=== PATIENT | female | born 1965 | race Caucasian/White ===

== ENCOUNTER 2017-01-26 03:23 | Emergency (ER) | payer OTHER ==
[~2017-01-26] VITALS: Ht 152.4 cm; Wt 78.6 kg
[2017-01-26 03:25] VITALS: BP 107/70; PULSE 88; RESP 20; O2SAT 96
--- NOTE | 2017-01-26 03:48 | ED.REPORT ---
HPI-General Illness Date of Service Jan 26, 2017 ED Provider: Issac Brown MD 51 year old female with a history of asthma presents to the ER complaining of three weeks of cough and wheeze. Associated symptom of mild sore throat. She was seen at the walk in clinic two days ago for similar. At that time she was found to be afebrile and was treated with steroids and albuterol inhaler. This morning she awakened to find that her fever had developed, and came into the emergency department. She has a nebulizer at home but no puffer and spacer. She is on a prednisone taper and currently tapering. Nursing Notes Stated Complaint: FEVER,COUGH Chief Complaint: FLU/Cold Symptoms Nursing Notes Reviewed: Yes Allergies: Coded Allergies: hydromorphone HCl (Verified Adverse Reaction, Severe, PANIC, 07/15/12) metoclopramide HCl (Verified Adverse Reaction, Severe, HYPERTENSION, ) Uncoded Allergies: TRAZADONE (Allergy, Mild, RASH, 07/15/12) METRADIAZOLE (Adverse Reaction, Mild, RASH, 07/15/12) Scheduled Azithromycin (Zithromax) 250 Mg Tablet 250 MG PO DAILY Prednisone (PredniSONE) 20 Mg Tablet 60 MG PO DAILY Scheduled PRN Albuterol Neb Soln (Albuterol Neb Soln) 2.5 Mg/3 Ml Vial.neb 2.5 MG INHALATION Q4H PRN PRN For Wheezing Benzonatate (Tessalon Perle) 100 Mg Capsule 100 MG PO TID PRN PRN For Cough General Time Seen by MD: 03:47 Chief Complaint Fever Hx Obtained From: Patient Arrived By: Walk-in Sudden in Onset?: No Onset Occurred: More than a week ago... (3 weeks) Symptom Duration: Since onset Associated with: Reports: Congestion, Cough, Denies: Chest pain, Vomiting Pertinent Negative: Pt denies other symptoms Context Related History: Reports Asthma Recent Healthcare: Recent doctor visit Similar Sx Previous: Yes Past Medical History Past Medical History Reports: Asthma Smoking History Unknown if Ever Smoker Ambulatory Status Independent Review of Systems Full Review of Systems Constitutional: Reports: Fever Ears / Nose / Throat: Reports: Sore throat Respiratory: Reports: Non-productive cough GI: Denies: Abdominal pain, Diarrhea, Nausea, Vomiting Complete sys rev & neg: except as marked. Physical Exam Vital Signs Vital Signs Date Time Temp Pulse Resp B/P Pulse Ox O2 Delivery O2 Flow Rate FiO2 01/26/17 06:08 105 20 121/59 95 Room Air 01/26/17 04:13 81 18 96 Room Air 01/26/17 03:25 37.7 88 20 107/70 96 Room Air Initial VS: Reviewed General/Constitutional: Well-developed, Well-nourished Head / Eyes: Atraumatic, Normocephalic, PERRL Neck: Supple, Non-tender, Full range of motion Extremities: Vascular intact, Neuro intact, No swelling, No tenderness Skin: Warm, Dry, No cyanosis Neurologic: Alert, Oriented, Nonfocal ENT: Airway patent, Mucous membranes moist, Pharynx NL, Tympanic membs NL, Ext aud canal NL Respiratory / Chest: No rales, No rhonchi, No chest tenderness, No chest wall deformity Wheezing / Retractions: Positive: Wheezing expiratory (end) Bronchospastic sounding cough. Cardiovascular: Heart rate NL, Regular rhythm, Heart sounds NL, Cap refill not delayed, Peripheral circulation NL Interpretation & Diagnostics X-Ray Chest Interpretation Chest Xray Interpretation: Normal. View: AP & lat Interpretation / Wet Read by: Wet read ED physician Re-Eval/Medical Decision Med Decision/Clinical Course 51-year-old history of asthma presents with three week course, eating and a definite fever this evening. X-rays negative for infiltrate. We will begin azithromycin empirically, and addition to restarting her prednisone at full dose. Albuterol puffer and spacer with training provided. Follow up with PCP. Prompt return if worse. Time of Eval: 05:32 Re-Evaluation/Progress Note: Patient's continues to have a tight cough, but is improved. Discussed lab and radiology results and plan to discharge. Patient is amenable to the plan. Return precautions given. All other questions addressed. Counseled Regarding: Diagnosis, Need for follow-up, When/why to return to ED Discharge & Departure Primary Impression: Bronchitis Additional Impression: Asthma Asthma severity: moderate persistent Asthma complication type: with acute exacerbation Qualified Code: J45.41 - Moderate persistent asthma with (acute) exacerbation Disposition: Home Discharge Condition All VS Reviewed: Yes Condition: Stable Patient Instructions: Acute Bronchitis (DC), Asthma (DC) Additional Instructions: Continue prednisone. Add azithromycin daily for four more days Drink plenty fluids and stay well-hydrated Run a vaporizer in her room to keep the air moist Return if worsening despite treatment May use Tessalon Perles for persistent coughing Use albuterol two puffs every 3-4 hours, always with spacer. Referrals: Steven Em MD (PCP) Scribe Attestation Portions of this note were transcribed by Jerry Cruz. I, Dr. Brown, personally performed the history, physical exam and medical decision-making; I reviewed and confirmed the accuracy of the information in the transcribed note. Signed by: Conor Brambila. 01/26/2017 - 05:43 copies to: Steven Em MD, Christopher W MD Jan 26, 2017 03:48 JERRY CRZU Jan 26, 2017 03:58
[2017-01-26] MEDS ORDERED: Albuterol-Ipratropium 3 mL Inhalation Solution NEB ONE (03:55)
[2017-01-26] MEDS ORDERED: Albuterol 2.5 mg/3 mL Inhalation Solution NEB ONE ×2 (03:55→05:45)
[2017-01-26 04:13] VITALS: PULSE 81; RESP 18; O2SAT 96
[2017-01-26] MEDS ORDERED: _Albuterol-HFA 60 Puff Inhaler INHALATION PRN (05:05)
[2017-01-26] MEDS ORDERED: ZIT250 PO (05:27)
[2017-01-26] MEDS ORDERED: BENZ-12 PO (05:27)
[2017-01-26] MEDS ORDERED: Dexamethasone 20 mg/2 mL Oral Solution PO ONE (05:30)
[2017-01-26] MEDS ORDERED: PRE20 PO (05:30)
[2017-01-26] MEDS ORDERED: ALBU2.5V4 INHALATION (05:43)
[2017-01-26 06:08] VITALS: BP 121/59; PULSE 105; RESP 20; O2SAT 95
--- NOTE | 2017-01-26 09:10 | DRSVH ---
PROCEDURE: X-RAY CHEST, TWO VIEWS ([id number]) INDICATIONS: cough, fever TECHNIQUE: 2 views of the chest were acquired. COMPARISON: [facility], CR, CHEST 2VW, 07/15/2012, 20:24. FINDINGS: Surgical changes and devices: None. Lungs and pleura: No pleural effusions or pneumothorax. Lungs are clear. Mediastinum: Mediastinal contours are normal. Heart size is normal. Bones and chest wall: No suspicious bony abnormalities. Soft tissues appear unremarkable. IMPRESSION: No acute cardiopulmonary disease. Dictated by: Jez Summers [facility] Interpreted: Evelina Christianson MD on 01/26/2017 at 9:10 Transcribed by: ROMEL on 01/26/2017 at 9:10 Approved by: Evelina Christianson MD, PhD on 01/26/2017 at 16:41
== END 2017-01-26 06:09 | disposition home or self-care (01) ==
LOC: SED 03:23
DX: J45.41 Moderate persistent asthma with (acute) exacerbation (principal); Z88.5 Allergy status to narcotic agent; Z88.8 Allergy status to other drugs, medicaments and biological substances
CPT/HCPCS: 71020; 94640; 94664; 99284; J7613; J7620

== ENCOUNTER 2017-02-24 14:02 | Emergency (ER) | payer OTHER ==
[~2017-02-24] VITALS: Ht 152.4 cm; Wt 79.5 kg
[~2017-02-24 14:02] MED LIST: ALBU2.5V4 INHALATION; BENZ-12 PO; PRE20 PO; ZIT250 PO
[2017-02-24 14:19] VITALS: BP 140/84; PULSE 86; RESP 16; O2SAT 97
--- NOTE | 2017-02-24 15:43 | ED.REPORT ---
HPI-Dental/Mouth Prob Date of Service Feb 24, 2017 ED Provider: Miguel A Lema PA-C Nikki is an otherwise healthy 51-year-old female presenting with a chief complaint of dental pain. She reports she broke a right lower molar approximately one week ago and has had severe pain since then. She feels as though there is a lump near the tooth. Denies fever, chills, malaise, vomiting. She reports getting reasonable pain control with 400 mg ibuprofen, however this does not last long enough. She is attempting to make arrangements to see a dentist through Dec, but they cannot schedule her for about 1 month. Plans to call other dentists to try to be seen sooner. Nursing Notes Stated Complaint: DENTAL PAIN Chief Complaint: Dental Nursing Notes Reviewed: Yes Allergies: Coded Allergies: metronidazole (Verified Allergy, Mild, RASH, 02/24/17) trazodone (Verified Allergy, Mild, RASH, 02/24/17) hydromorphone HCl (Verified Adverse Reaction, Severe, PANIC, 02/24/17) metoclopramide HCl (Verified Adverse Reaction, Severe, HYPERTENSION, ) Scheduled Azithromycin (Zithromax) 250 Mg Tablet 250 MG PO DAILY Penicillin V Potassium (Penicillin V Potassium) 500 Mg Tablet 500 MG PO QID Prednisone (PredniSONE) 20 Mg Tablet 60 MG PO DAILY Scheduled PRN Albuterol Neb Soln (Albuterol Neb Soln) 2.5 Mg/3 Ml Vial.neb 2.5 MG INHALATION Q4H PRN PRN For Wheezing Benzonatate (Tessalon Perle) 100 Mg Capsule 100 MG PO TID PRN PRN For Cough General Time Seen by MD: 15:28 Chief Complaint Tooth pain Past Medical History Past Medical History Reports: Asthma Smoking History Unknown if Ever Smoker Ambulatory Status Independent Review of Systems Review of Systems Note: Negative unless stated otherwise in history of present illness Physical Exam General: Well appearing, well developed, well nourished, no acute distress. Head: Atraumatic, normocephalic. Eyes: No scleral icterus or injection. No discharge. Vision grossly intact. ENT: Voice clear, hearing grossly intact. Mouth: Poor dentition with many caries. Obviously fractured molar #2. Tenderness along the gumline. No redness, swelling, discharge, fluctuance. Apparently no drainable abscess. Respiratory: No respiratory distress, no increased work of breathing. Speaks in complete sentences. Skin: Warm and dry. Neurological: Grossly nonfocal. Psychological: alert and oriented. Speech appropriate, linear and logical. Behavior appropriate. Initial Vital Signs Vital Signs (First) Date Time Temp Pulse Resp B/P Pulse Ox O2 Delivery O2 Flow Rate FiO2 02/24/17 14:19 36.6 86 16 140/84 97 Room Air Initial VS: Vital signs normal Re-Eval/Medical Decision Med Decision/Clinical Course Otherwise healthy 51-year-old female presents the chief complaint of tooth pain in her right lower jaw. Reports that she fractured her tooth one week ago. No obvious infection or abscess to be drained. Patient reports getting reasonable analgesia with 400 mg ibuprofen. I advised increase ibuprofen to 600 mg and alternating every 3 hours with acetaminophen 1000 mg. Prescribed Pen-Vee K 500 mg 4 times a day 7 days, as I think infection is likely to develop before she can be seen by dentist. Advised dental follow-up, provided emergent return precautions. Patient verbalizes understanding of and agreement to the plan. Discharge & Departure Primary Impression: Toothache Disposition: Home Discharge Condition All VS Reviewed: Yes Condition: Stable Patient Instructions: Acute dental trauma (ED) Additional Instructions: Evaluation for tooth pain in the emergency department. The source of your pain appears to be the fractured tooth in your right lower jaw. There is no indication of an abscess that would benefit from drainage. This will need to be seen by a dentist as soon as possible. The pain is best treated with 600 mg of ibuprofen (Advil, Motrin) every 6 hours , or 1000 mg of acetaminophen (Tylenol) every 6 hours. These drugs can be taken at the same time for more severe pain. I will also write a prescription for penicillin to be taken 4 times a day for 7 days. Follow-up with a dentist as soon as possible. Return to emergency department for any new or worsening symptoms including fever, increasing pain, redness, swelling or any appearance of pus. Referrals: Steven Em MD (PCP) EDSupervising Provider for APC: Adriana Kaiser MD copies to: Steven Em MD, Seth PA-C Feb 24, 2017 15:43
[2017-02-24] MEDS ORDERED: PENI500T PO (15:44)
[2017-02-24 16:28] VITALS: BP 142/86; PULSE 71
== END 2017-02-24 16:30 | disposition home or self-care (01) ==
LOC: SED 14:02
DX: K08.89 Other specified disorders of teeth and supporting structures (principal); J45.909 Unspecified asthma, uncomplicated; Z88.5 Allergy status to narcotic agent; Z88.8 Allergy status to other drugs, medicaments and biological substances
CPT/HCPCS: 96372; 99283; J1885

== ENCOUNTER 2017-05-22 18:21 | Emergency (ER) | payer OTHER ==
[~2017-05-22 18:21] MED LIST changes: +PENI500T PO
[2017-05-22 18:24] VITALS: PULSE 96; RESP 12; O2SAT 98
--- NOTE | 2017-05-22 18:31 | ED.REPORT ---
HPI-Eye Problem Date of Service May 22, 2017 ED Provider: Dr. Ken Valadez The patient is a 51 year old female who presents to the ED due to left eye redness earlier today. Pt noticed after coughing that she had a conjunctival hemorrhage. She denies any other symptoms or eye pain, eye swelling, vision loss , or blurred vision. Nursing Notes Stated Complaint: EYE ISSUE Chief Complaint: Eye Nursing Notes Reviewed: Yes Allergies: Coded Allergies: metronidazole (Verified Allergy, Mild, RASH, 02/24/17) trazodone (Verified Allergy, Mild, RASH, 02/24/17) hydromorphone HCl (Verified Adverse Reaction, Severe, PANIC, 02/24/17) metoclopramide HCl (Verified Adverse Reaction, Severe, HYPERTENSION, ) Scheduled Azithromycin (Zithromax) 250 Mg Tablet 250 MG PO DAILY Penicillin V Potassium (Penicillin V Potassium) 500 Mg Tablet 500 MG PO QID Prednisone (PredniSONE) 20 Mg Tablet 60 MG PO DAILY Scheduled PRN Albuterol Neb Soln (Albuterol Neb Soln) 2.5 Mg/3 Ml Vial.neb 2.5 MG INHALATION Q4H PRN PRN For Wheezing Benzonatate (Tessalon Perle) 100 Mg Capsule 100 MG PO TID PRN PRN For Cough General Time Seen by MD: 18:29 Chief Complaint Left eye affected Hx Obtained From: Patient Arrived By: Walk-in Sudden in Onset?: Yes Onset Occurred: 1 - 4 hours ago Symptom Duration: Since onset Location: : Eye left Quality: Painful Severity: Current: Mild Pertinent Negative: Pt denies other symptoms Recent Healthcare: No recent doctor visit, No recent hospitalization Similar Sx Previous: No Past Medical History Past Medical History Reports: Asthma Past Surgical History denies Smoking History Unknown if Ever Smoker Ambulatory Status Independent Review of Systems Eyes: Reports: Redness left, Denies: Blurred bilateral, Blurred left, Blurred right, Eye pain bilateral, Eye pain left, Eye pain right, Redness bilateral, Redness right, Visual loss bilateral, Visual loss left, Visual loss right Complete sys rev & neg: except as marked. Physical Exam Initial Vital Signs Vital Signs (First) Date Time Temp Pulse Resp B/P Pulse Ox O2 Delivery O2 Flow Rate FiO2 05/22/17 18:24 36.7 96 12 98 Room Air Initial VS: Reviewed Head / Eyes: Normocephalic, PERRL, EOMI, No nystagmus, No periorbital swelling , No photophobia, No scleral icterus, Cornea clear, No corneal abrasion, Eyelids NL left conjunctival hemorrhage General/Constitutional: Awake, Alert, Cooperative Skin: Atraumatic, Color NL, No rash Upper Extremity / MS: Atraumatic, Full range of motion, No deformity Wrist / Hand: Atraumatic, Full range of motion, No deformity Lower Extremity / Pelvis / MS: Atraumatic, Full range of motion, No deformity Ankle / Foot: Atraumatic, Full range of motion, No deformity Re-Eval/Medical Decision Med Decision/Clinical Course Classic subconjunctival hemorrhage without any evidence of globe involvement. The anterior chambers clear. Pupils are equal round reactive to light. Visual acuity is 20/20 bilateral. No signs of retinal detachment. She is not on anticoagulants. This followed a coughing spell. Advanced diagnostics not indicated. Recommend follow-up on the outpatient basis. Counseled Regarding: Diagnosis, Lab results, Need for follow-up, When/why to return to ED Discharge & Departure Shift Change Sign-Out Response to Therapy: Improved Primary Impression: Subconjunctival hemorrhage of left eye Disposition: Home Discharge Condition All VS Reviewed: Yes Condition: Stable Patient Instructions: Subconjunctival Hemorrhage (ED) Additional Instructions: The blood is most likely from a ruptured capillary that feature conjunctiva. Coughing may have triggered this. Do not take the aspirin for 48 hours. This should slowly resolve over the next week. This should not affect her vision whatsoever or cause any pain. If you have any change in vision or any pain we need to see him right back. Set up a follow-up with the referral manager programming. Return if any problems or any new or worrisome symptoms. This is generally a very benign condition. Referrals: Steven Em MD (PCP) Isabel White MD Attestation Portion of this note were transcribed by Anahy Jacobson. I, Dr. Valadez, personally performed the history, physical exam, and medical decision-making: I reviewed and confirmed the accuracy for the information in the transcribed note. Signed by: christiane Godinez, 05/23/17 0200 copies to: Isabel White MD; Steven Em MD, Todd P DO Jul 23, 2017 18:31 Anahy Jacobson May 23, 2017 00:04
== END 2017-05-22 18:40 | disposition home or self-care (01) ==
LOC: SED 18:21
DX: H11.32 Conjunctival hemorrhage, left eye (principal); Z88.1 Allergy status to other antibiotic agents; Z88.5 Allergy status to narcotic agent; Z88.8 Allergy status to other drugs, medicaments and biological substances

== ENCOUNTER 2017-07-12 19:03 | Emergency (ER) | payer OTHER ==
[~2017-07-12] VITALS: Ht 152.4 cm; Wt 75.0 kg
[2017-07-12 19:10] VITALS: BP 121/75; PULSE 78; RESP 18; O2SAT 99
--- NOTE | 2017-07-12 21:13 | ED.REPORT ---
HPI-Extremity Problem Lower Date of Service Jul 12, 2017 ED Provider: Issac Brown MD Pt is a 51 y/o female who presents to the ED c/o right ankle pain onset earlier today. She states her pain radiates up the medial side of her right calf. She denies numbness/tingling, loss of sensation in right foot, or a mechanism of injury. Nursing Notes Stated Complaint: RT INSIDE OF LEG,ANKLE,AND FOOT IS SWOLLEN W/ACHE Chief Complaint: Extremity Trauma Nursing Notes Reviewed: Yes Allergies: Coded Allergies: metronidazole (Verified Allergy, Mild, RASH, 07/12/17) trazodone (Verified Allergy, Mild, RASH, 07/12/17) hydromorphone HCl (Verified Adverse Reaction, Severe, PANIC, 07/12/17) metoclopramide HCl (Verified Adverse Reaction, Severe, HYPERTENSION, ) Scheduled Azithromycin (Zithromax) 250 Mg Tablet 250 MG PO DAILY Penicillin V Potassium (Penicillin V Potassium) 500 Mg Tablet 500 MG PO QID Prednisone (PredniSONE) 20 Mg Tablet 60 MG PO DAILY Scheduled PRN Albuterol Neb Soln (Albuterol Neb Soln) 2.5 Mg/3 Ml Vial.neb 2.5 MG INHALATION Q4H PRN PRN For Wheezing Benzonatate (Tessalon Perle) 100 Mg Capsule 100 MG PO TID PRN PRN For Cough Ibuprofen (Ibuprofen) 400 Mg Tablet 400 MG PO QID PRN PRN For Pain General Time Seen by MD: 21:13 Chief Complaint Other (Right foot pain ) Hx Obtained From: Patient Arrived By: Walk-in Onset Occurred: 5 - 8 hours ago Symptom Duration: Constant Location: : Ankle right Quality: Painful Severity: Current: Moderate Severity: Maximum: Moderate Pertinent Negative: Pt denies other symptoms Recent Healthcare: No recent hospitalization, Recent doctor visit Similar Sx Previous: No Past Medical History Past Medical History Reports: Asthma Past Surgical History denies Smoking History Unknown if Ever Smoker Ambulatory Status Independent Review of Systems No loss of sensation in foot Constitutional: Denies: Chills Musculoskeletal: Reports: Extremity pain (Right ankle ) Neurologic: Denies: Focal weakness, Numbness Complete sys rev & neg: except as marked. Eyes: Denies: Visual loss left Respiratory: Denies: Non-productive cough, Prod cough, clear, Shortness of breath Cardiovascular: Denies: Chest pain Allergy / Immune: Denies: Itching Physical Exam Initial Vital Signs Vital Signs (First) Date Time Temp Pulse Resp B/P Pulse Ox O2 Delivery O2 Flow Rate FiO2 07/12/17 19:10 36.2 78 18 121/75 99 Initial VS: Reviewed Head / Eyes: Atraumatic, Normocephalic Neck: Supple, Full range of motion Respiratory: No respiratory distress Upper Extremities: Vascular intact, Neuro intact, No swelling, No tenderness Skin: Warm, Dry, No cyanosis Neurologic: Alert, Oriented, Nonfocal Psychiatric: Mood/affect normal, Behavior normal, Normal thought content Lower Extremity / Pelvis / MS: Neurologic intact, Vascular intact Ankle / Foot: Neurologic intact, Vascular intact Tenderness to palpation on distal lower leg on medial side near medial malleolus Intact sensation to right foot General/Constitutional: Awake, Alert Interpretation & Diagnostics US VENOUS DUPLEX RIGHT: IMPRESSION: No right lower extremity deep vein thrombosis. Dictated by: Kirsten Oneill M.D. on 07/12/2017 at 21:26 Approved by: Kirsten Oneill M.D. on 07/12/2017 at 21:27 X-Ray Interpretation Xray Interpretation: Ankle Right: No acute fracture findings. Interpretation / Wet Read by: Wet read ED physician Re-Eval/Medical Decision Med Decision/Clinical Course 51-year-old presents with tenderness on her ankle and no recalled injury specifically, although she stepped down from a high place and may have had a minor injury she did not focus on at the time. X-rays negative. Ultrasound was done before my evaluation and is negative. No indication of DVT. Home with Case air cast and crutches. Source of Hx: Old records Re-Evaluation/Progress : Time of Eval: 23:05 Re-Evaluation/Progress Note: Patient rechecked. Discussed plan for discharge. Patient understands and agrees with plan. F/U instructions and RTER warnings given. All questions addressed at this time. Counseled Regarding: Diagnosis, Lab results, Need for follow-up, When/why to return to ED Discharge & Departure Impression: Primary Impression: Ankle sprain Encounter type: initial encounter Involved ligament of ankle: unspecified ligament Laterality: right Qualified Code: S93.401A - Sprain of unspecified ligament of right ankle, initial encounter Disposition: Home Discharge Condition All VS Reviewed: Yes Condition: Stable Patient Instructions: Ankle Sprain (GEN), Crutch Instructions (ED) Additional Instructions: Ibuprofen four times daily as needed for pain. Use the Case wrap plus the Aircast splint plus a shoe (not a flip-flop) to support the ankle. Remove all back to sleep. Use crutches as long as tender to bear weight. Continue with the splint as long as it is tender to bear weight without the splint. This may be a week or more. Follow-up with your doctor in the office. Referrals: Steven Em MD (PCP) Scribe Attestation Portions of this note were transcribed by Natividad Green. I, Dr. Brown, personally performed the history, physical exam and medical decision-making; I reviewed and confirmed the accuracy of the information in the transcribed note. copies to: Steven Em MD, Christopher W MD Jul 12, 2017 21:13 Natividad Green Jul 12, 2017 21:29
--- NOTE | 2017-07-12 21:28 | DRSVH ---
PROCEDURE: US VEINOUS LEG DUPLEX UNILATERAL, RIGHT INDICATIONS: ? DVT TECHNIQUE: Real-time imaging, as well as color and pulse Doppler interrogation, were performed of the lower extr emity deep veins from the inguinal ligament to the popliteal fossa. COMPARISON: None. FINDINGS: The deep veins are normally compressible, and free of intraluminal thrombus. Color and pu lse Doppler demonstrate normal phasic intraluminal flow. There is normal augmentation response to di stal compression maneuver. IMPRESSION: No right lower extremity deep vein thrombosis. Dictated by: Kirsten Oneill M.D. on 07/12/2017 at 21:26 Approved by: Kirsten Oneill M.D. on 07/12/2017 at 21:27
[2017-07-12] MEDS ORDERED: IBUP400T22 PO (22:58)
--- NOTE | 2017-07-13 20:04 | DRSVH ---
PROCEDURE: X-RAY RIGHT ANKLE, MINIMUM THREE VIEWS ([id number]) INDICATIONS: pain possible sprain/inversion TECHNIQUE: 3 views of the ankle were acquired. COMPARISON: None. FINDINGS: Bones: No fractures or dislocations. Ankle mortise is normally aligned. No suspicious bony lesions . Soft tissues: No tibiotalar joint effusion. Achilles tendon appears normal. IMPRESSION: No displaced fracture seen. If there is continued pain, followup exam or additional vanessa ging such as MRI or CT could be performed for further assessment. Dictated by: Jez SWENSON Interpreted: Lala Lugo MD on 07/13/2017 at 8:56 Approved by: Lala Lugo M.D. on 07/13/2017 at 20:02
== END 2017-07-12 23:15 | disposition home or self-care (01) ==
LOC: SED 19:03
DX: S93.491A Sprain of other ligament of right ankle, initial encounter (principal); X50.9XXA Other and unspecified overexertion or strenuous movements or postures, initial encounter; Y93.89 Activity, other specified; Y92.89 Other specified places as the place of occurrence of the external cause; Y99.8 Other external cause status; J45.909 Unspecified asthma, uncomplicated; Z88.1 Allergy status to other antibiotic agents; Z88.5 Allergy status to narcotic agent; Z88.8 Allergy status to other drugs, medicaments and biological substances